=== PATIENT | female | born 1950 | race Caucasian/White ===

== ENCOUNTER 2024-04-18 08:56 | Outpatient (CLI) | payer MEDICARE, OTHER | END 2024-04-18 08:57 | disposition home or self-care (01) | LOC: NM 08:56 | PROVIDERS: ATTEND Specialist | DX: T84.84XA Pain due to internal orthopedic prosthetic devices, implants and grafts, initial encounter (principal); M16.12 Unilateral primary osteoarthritis, left hip; Z96.642 Presence of left artificial hip joint | CPT/HCPCS: 78315; A9503 ==

== ENCOUNTER 2025-05-25 11:10 | Outpatient (CLI) | payer MEDICARE, OTHER | END 2025-05-25 11:11 | disposition home or self-care (01) | LOC: BICRAD 11:10 | PROVIDERS: ATTEND Family Medicine | DX: R05.9 Cough, unspecified (principal) | CPT/HCPCS: 71046 ==